=== PATIENT | male | born 1975 | race Caucasian/White ===

== ENCOUNTER 2022-09-11 08:31 | Outpatient (REF) | payer BC, SELFPAY ==
--- NOTE | 2022-09-11 | ECG_ITS ---
Test Reason : ESSENT HTN Blood Pressure : / mmHG Vent. Rate : 092 BPM Atrial Rate : 092 BPM P-R Int : 134 ms QRS Dur : 094 ms QT Int : 350 ms P-R-T Axes : 024 037 032 degrees QTc Int : 432 ms Normal sinus rhythm Normal ECG No previous ECGs available Referred By: Atul Rubio Electronically Signed By:BRO DIAZ MD
[2022-09-11 08:47] LABS: MANUAL DIFF FLAG NO
[2022-09-11 08:58] LABS: Basophils Absolute Auto 0.1 X10*3/uL (0.0-0.2); Basophils Percent Auto 0.9 % (0-2); Eosinophils Absolute Auto 0.2 X10*3/uL (0.0-0.4); Hematocrit 42.5 % (42.0-52.0); Hemoglobin 13.9 g/dl (14.0-18.0); Imm Gran Abs Auto 0.01 X10*3/uL (0.00-0.03); Imm Gran Pct Auto 0.2 % (0.0-0.4); Lymphocytes Absolute Auto 2.4 X10*3/uL (1.2-4.9); Lymphocytes Percent Auto 42.5 % (20-40); Mean Corpuscular HGB Conc 32.7 g/dl (31.0-36.0); Mean Corpuscular Hemoglobin 30.5 pg (27.0-33.0); Mean Corpuscular Volume 93.2 fL (80.0-98.0); Mean Platelet Volume 9.8 fL (9.4-12.4); Monocytes Absolute Auto 0.6 X10*3/uL (0.1-1.2); Monocytes Percent Auto 10.4 % (2-11); Neutrophils Absolute Auto 2.5 x10*3/uL (2.0-8.3); Platelet Count 273 X10*3/uL (160-400); Red Blood Count 4.56 X10*6/uL (4.60-5.80); Red Cell Distribution Width 12.7 % (11.0-16.0); White Blood Count 5.7 X10*3/uL (4.8-10.8)
[2022-09-11 09:39] LABS: Albumin Level 4.2 g/dL (3.5-5.0); Anion Gap 13 (12-20); Bilirubin Direct 0.2 mg/dL (0.0-0.5); Bilirubin Total 0.7 mg/dL (0.0-1.0); Blood Urea Nitrogen 13 mg/dL (9-16); Calcium 9.1 mg/dL (8.4-10.2); Carbon Dioxide 25 mmol/L (22-29); Chloride 106 mmol/L (96-108); Estimated Glomerular Filt Rate > 60; Glucose Fasting 98 mg/dL (60-99); Potassium 4.9 mmol/L (3.3-5.1); Sodium 139 mmol/L (135-145); Total Protein 7.1 g/dL (6.5-8.0)
[2022-09-11 09:54] LABS: Alanine Aminotransferase 25 U/L (0-40); Alkaline Phosphatase 75 U/L (39-117); Aspartate Amino Transferase 26 U/L (5-37)
== END 2022-09-11 08:32 | disposition home or self-care (01) ==
LOC: HO.LAB 08:31
PROVIDERS: Visit Provider Internal Medicine
DX: Z00.00 Encounter for general adult medical examination without abnormal findings (principal); F90.0 Attention-deficit hyperactivity disorder, predominantly inattentive type; I10 Essential (primary) hypertension
CPT/HCPCS: 36415; 80053; 80076; 82248; 85025; 93005

== ENCOUNTER 2024-03-11 09:34 | Outpatient (REF) | payer BC, SELFPAY ==
[2024-03-11 09:58] LABS: MANUAL DIFF FLAG NO
[2024-03-11 10:51] LABS: Basophils Absolute Auto 0.1 X10*3/uL (0.0-0.2); Basophils Percent Auto 1.2 % (0-2); Eosinophils Absolute Auto 0.2 X10*3/uL (0.0-0.4); Eosinophils Percent Auto 4.6 % (0-4); Hemoglobin 14.1 g/dl (14.0-18.0); Imm Gran Abs Auto 0.02 X10*3/uL (0.00-0.03); Imm Gran Pct Auto 0.4 % (0.0-0.4); Lymphocytes Absolute Auto 1.9 X10*3/uL (1.2-4.9); Lymphocytes Percent Auto 38.8 % (20-40); Mean Corpuscular HGB Conc 33.6 g/dl (31.0-36.0); Mean Corpuscular Hemoglobin 31.1 pg (27.0-33.0); Mean Corpuscular Volume 92.5 fL (80.0-98.0); Mean Platelet Volume 9.9 fL (9.4-12.4); Monocytes Absolute Auto 0.5 X10*3/uL (0.1-1.2); Monocytes Percent Auto 9.2 % (2-11); Neutrophils Absolute Auto 2.3 x10*3/uL (2.0-8.3); Neutrophils Percent Auto 45.8 % (45-73); Platelet Count 287 X10*3/uL (160-400); Red Blood Count 4.54 X10*6/uL (4.60-5.80); Red Cell Distribution Width 13.2 % (11.0-16.0)
[2024-03-11 11:50] LABS: Alanine Aminotransferase 19 U/L (0-40); Albumin Level 4.1 g/dL (3.5-5.0); Alkaline Phosphatase 63 U/L (39-117); Anion Gap 13 (12-20); Aspartate Amino Transferase 20 U/L (5-37); Bilirubin Total 0.3 mg/dL (0.0-1.0); Blood Urea Nitrogen 18 mg/dL (9-16); Calcium 9.2 mg/dL (8.4-10.2); Carbon Dioxide 26 mmol/L (22-29); Chloride 107 mmol/L (96-108); Cholesterol 208 mg/dL (<200); Estimated Glomerular Filt Rate > 60; Glucose Fasting 94 mg/dL (60-99); HDL Cholesterol 63 mg/dL (>40); LDL Cholesterol Calculated 128 mg/dL (<100); Potassium 4.8 mmol/L (3.3-5.1); Sodium 141 mmol/L (135-145); Total Protein 7.3 g/dL (6.5-8.0); Triglycerides 88 mg/dL (<150)
[2024-03-11 12:05] LABS: Thyroid Stimulating Hormone 2.22 uIU/mL (0.32-4.0)
[2024-03-11 12:10] LABS: PSA,Total (Free>4and<10) 1.42 ng/mL (0.00-4.00)
== END 2024-03-11 09:35 | disposition home or self-care (01) ==
LOC: HO.LAB 09:34
PROVIDERS: PCP Internal Medicine; Visit Provider Internal Medicine
DX: Z00.00 Encounter for general adult medical examination without abnormal findings (principal); Z12.5 Encounter for screening for malignant neoplasm of prostate; I10 Essential (primary) hypertension; F90.0 Attention-deficit hyperactivity disorder, predominantly inattentive type; N20.0 Calculus of kidney
CPT/HCPCS: 36415; 80053; 80061; 84153; 84443; 85025

== ENCOUNTER 2024-05-14 08:26 | Day surgery (SDC) | payer BC, SELFPAY ==
--- NOTE | 2024-05-13 10:50 | HO.ANESPROP2 ---
Documented by User: Aranza Oviedo NP 05/13/24 10:51 HPI - Anesthesia Eval Consult details Narrative: 49yo M for Colonoscopy, Upper Endoscopy with Balloon Dilitation [facility] Past Medical History Medical History Kidney stones Hernia Raynaud disease Hypertension Surgical History Surgical History Hx of hernia repair Social History Social History Patient Tobacco Use Status: Never used Tobacco Use of substances other than those prescribed or required for medical reasons: No Are you DNR?: No Advance Directives: No Advance Directives Information Provided: Yes Meds Allergies Allergy/AdvReac Type Severity Reaction Status Date / Time No Known Allergies Allergy Unverified 05/11/24 16:41 Home Medications ?Medication ?Instructions ?Recorded ?Confirmed ?Last Taken ?Type atovaquone 250 mg-proguanil 100 mg 1 tab PO DAILY 05/13/24 05/13/24 Unknown History tablet cholecalciferol (vitamin D3) 25 mcg PO DAILY 05/13/24 05/13/24 Unknown History dextroamphetamine-amphetamine ER 1 cap PO QAM 05/13/24 05/13/24 Unknown History 25 mg 24hr capsule,extend release lisinopril 20 mg tablet 20 mg PO DAILY 05/13/24 05/13/24 Unknown History multivitamin 1 tab PO DAILY 05/13/24 05/13/24 Unknown History nifedipine 30 mg tablet,extended 30 mg PO DAILY 05/13/24 05/14/24 05/14/24 History release Assessment and Plan Assessment Anesthesia Assessment: Chart Reviewed Documented by User: Purnima Blanca MD 05/14/24 09:52 [facility] Past Medical History Medical History Kidney stones Hernia Raynaud disease Hypertension Family History Family history of problems with anesthesia: No Surgical History Surgical History Hx of hernia repair History of Problems with Anesthesia: No Social History Social History Patient Tobacco Use Status: Never used Tobacco Use of substances other than those prescribed or required for medical reasons: No Are you DNR?: No Advance Directives: No Advance Directives Information Provided: Yes Meds Allergies Allergy/AdvReac Type Severity Reaction Status Date / Time No Known Allergies Allergy Unverified 05/11/24 16:41 Home Medications ?Medication ?Instructions ?Recorded ?Confirmed ?Last Taken ?Type atovaquone 250 mg-proguanil 100 mg 1 tab PO DAILY 05/13/24 05/13/24 Unknown History tablet cholecalciferol (vitamin D3) 25 mcg PO DAILY 05/13/24 05/13/24 Unknown History dextroamphetamine-amphetamine ER 1 cap PO QAM 05/13/24 05/13/24 Unknown History 25 mg 24hr capsule,extend release lisinopril 20 mg tablet 20 mg PO DAILY 05/13/24 05/13/24 Unknown History multivitamin 1 tab PO DAILY 05/13/24 05/13/24 Unknown History nifedipine 30 mg tablet,extended 30 mg PO DAILY 05/13/24 05/14/24 05/14/24 History release Exam Airway Mallampati Class: III (mild receeding chin) TM Dist: >3cm Neck ROM: Full Heart: rrr Lungs: cta Assessment and Plan Assessment Anesthesia Assessment: Anesthesia Plan Discussed Final Anesthetic Review Family History of Problems with Anesthesia: No History of Problems with Anesthesia: No ASA Class: III Final Preanesthetic Review: No Changes in Pt Med Stat, Meds/Allgs Chart Reviewed, Consent Obtained/Reviewed and Anes Risks/Benef Reviewed Patient Risk: Intermediate Procedure Risk: Low Anesthetic Plan Anesthetic Plan: MAC: Disposition: Standard PACU
[2024-05-14 08:30] VITALS: BMI 28.2
[2024-05-14 08:49] VITALS: BP 125/84; PULSE 83; RESP 16; TEMP 36.2; O2SAT 99
[2024-05-14] MEDS: Lactated Ringers 1,000 ML 100 ML IVCONT (08:50)
[2024-05-14 11:07] VITALS: BP 108/71; PULSE 87; RESP 16; TEMP 36.2; O2SAT 97
--- NOTE | 2024-05-14 11:13 | P.BOP_ITS ---
Brief Operative Note Date of Service: 05/14/24 Pre-op diagnosis: Dysphagia, Screening Post-op diagnosis: other (Colon polyps, Hiatal hernia, GERD) Procedure: EGD with Balloon dilation of EG Junction with 18 to 19 to 20mm balloon, Colonoscopy to the cecum and TI with hot snare polypectomy x 4 Surgeon: Atul Minaya MD Anesthesia: MAC Was an Social Problems Specialist used for this Procedure?: No Estimated blood loss (mL): 2.0 Pathology: other (A. Polyp at 60cm B. Transverse colon polyp C. Rectal polyp D. EG Junction at 40cm) Condition: stable Disposition: PACU
[2024-05-14 11:22] VITALS: BP 125/85; PULSE 80; RESP 16; TEMP 36.1; O2SAT 97
--- NOTE | 2024-05-14 11:51 | OP_ITS ---
DATE OF SERVICE: 05/14/2024 SURGEON: Atul Minaya MD INDICATIONS: The patient presents for evaluation of intermittent dysphagia and colorectal cancer screening. Full consent has been obtained from him for this, including risks of bleeding and perforation. PREOPERATIVE DIAGNOSIS: POSTOPERATIVE DIAGNOSIS: PROCEDURE PERFORMED: Colonoscopy to the cecum and terminal ileum with hot snare polypectomy x4, and esophagogastroduodenoscopy with biopsies and balloon dilation of gastroesophageal junction. ESTIMATED BLOOD LOSS: COMPLICATIONS: ANESTHESIA: Monitored anesthesia care. ASSISTANTS: SPECIMENS: PREOPERATIVE DIAGNOSES: Dysphagia and colorectal cancer screening. POSTOPERATIVE DIAGNOSES: Dysphagia, colorectal cancer screening, colon polyps, internal hemorrhoids, small hiatal hernia, and gastroesophageal reflux. DESCRIPTION OF PROCEDURE: The patient was placed in the left lateral decubitus position. The digital rectal exam revealed no abnormalities. The Olympus video pediatric colonoscope was then entered into the rectum and advanced easily to the cecum. Once in the cecum, I did identify normal-appearing cecal pouch with appendiceal orifice and a normal-appearing ileocecal valve. There was transillumination of light deep in the right lower quadrant. The terminal ileum was cannulated and appeared normal. The scope was withdrawn back in the colon. The entire cecum and ileocecal valve appeared normal. The scope was then slowly withdrawn assessing all mucosal surfaces carefully. Preparation was excellent. In the more proximal transverse colon, was a flat, approximately 6 to 8 mm grossly adenomatous polyp, which was removed by hot snare polypectomy, but not recovered. The polypectomy site was cauterized with the tip of the snare due to some oozing. However, post polypectomy, there did not appear to be any residual polyp nor any further bleeding. In the more distal transverse colon, was a larger approximately 1.5 cm polyp on a stalk, which was removed by hot snare polypectomy and then recovered by a retrieval net and taking out of the patient. The scope was then readvanced back to the polypectomy site, which appeared clean, without any sign of residual polyp nor bleeding. At 60 cm, was an approximately 10 mm polyp, which was removed by hot snare polypectomy and recovered by suction. The polypectomy site appeared clean, without any sign of residual polyp nor bleeding. In the rectum, was an approximately 6 mm polyp, which was removed by hot snare polypectomy and recovered by suction. The polypectomy site appeared clean, without any sign of residual polyp nor bleeding. I did not visualize any other polyps, colitis, nor angiodysplasias. In the rectum, scope was retroflexed, visualizing small internal hemorrhoids, but no other pathology. The scope was straightened and withdrawn from the patient. He was then turned around for his upper endoscopy. The Olympus video gastroscope was passed in the posterior oropharynx and upper esophagus under direct vision. The scope was passed slowly into the distal esophagus. The gastroesophageal junction appeared at 40 cm. With insufflation of air, there did not appear to be any definitive esophageal ring or stricture. There was some slight irregularity consistent with reflux, but no esophagitis nor any definitive Garrett mucosa. The scope easily entered the stomach. There was a small hiatal hernia. The scope was advanced to pylorus and the duodenum was cannulated to the descending portion. The duodenum including the bulb appeared normal without mass or ulceration. The scope was withdrawn back to the stomach. The gastric antrum and body appeared normal with good peristalsis. The scope was retroflexed, visualizing the proximal stomach carefully, which appeared normal, without any sign of mass or ulceration. Scope was straightened and withdrawn back to the esophagus. I did use a [employer] incremental balloon to dilate the gastroesophageal junction from 18 mm to 19 mm to 20 mm at the recommended pressure for between 30 and 60 seconds each. Post dilation, there was a small amount of heme noted. I did obtain 2 biopsies at the EG junction as well at 40 cm. Proximal to this, the esophageal mucosa appeared normal. There was no evidence of any proximal esophageal rings nor other abnormality. The scope was withdrawn from the patient. He tolerated both procedures well and was returned to the recovery area in stable condition. IMPRESSION: 1. Colon polyps. 2. Internal hemorrhoids. 3. Small hiatal hernia, gastroesophageal reflux. PLAN: The results of the pathology will be checked. He was advised not to use any aspirin and NSAIDs for 1 week. He will be given a prescription to use omeprazole 20 mg daily for 1 or 2 months and then he can use it p.r.n. thereafter. We shall see if his swallowing improves with today's procedure and the use of omeprazole. I would recommend a repeat colonoscopy in 3 years for further screening given his relatively young age and today's findings. If things are stable, he will see me on a p.r.n. basis. He was advised to call if swallowing remains a problem or if he has any other issues or questions. This has been discussed with his . MD CONSUELO Ziegler/SYLVESTER / [phone]
== END 2024-05-14 12:11 | disposition home or self-care (01) ==
PROVIDERS: PCP Internal Medicine; Visit Provider Internal Medicine
PROC: 0DJD8ZZ Inspection of Lower Intestinal Tract, Via Natural or Artificial Opening Endoscopic (ICD-10-PCS; CPT 45378; principal; 2024-05-14 09:30)
PROC: (CPT 45385; 2024-05-14 09:30)
DX: Z12.11 Encounter for screening for malignant neoplasm of colon (principal); D12.3 Benign neoplasm of transverse colon; D12.4 Benign neoplasm of descending colon; D12.8 Benign neoplasm of rectum; K64.8 Other hemorrhoids; R13.10 Dysphagia, unspecified; I10 Essential (primary) hypertension; I73.00 Raynaud's syndrome without gangrene; Z79.899 Other long term (current) drug therapy; Z98.890 Other specified postprocedural states
CPT/HCPCS: 45385; 43249; 43239; 88305; 88313; C1726; J1596; J2704

== ENCOUNTER 2024-11-05 15:33 | Outpatient (AMB) | payer BC, SELFPAY ==
--- NOTE | 2024-11-05 15:34 | MHC.PC.OV ---
Vital Signs 11/05/24 15:47 Height 6 ft 0.5 in BP 130/80 Pulse 82 Pulse Source Pulse Oximeter Temp 97.2 F Pulse Oximetry (%) 99 Intake Visit Reasons: left knee pain Intake Note: here for left knee pain going on since new years and has become more noticeable not swollen pain in the front to inner knee not comfortable to put weight on it. Allergies No Known Allergies Allergy (Verified 11/05/24 15:42) PFSH Medical History Kidney stones Hernia Raynaud disease Hypertension Surgical History Hx of hernia repair Social History Patient Tobacco Use Status: Never used Tobacco Physical exam (Primary Care) Vital Signs: Last Vital Signs Temp 97.2 F 11/05/24 15:47 Pulse 82 11/05/24 15:47 BP 130/80 11/05/24 15:47 Pulse Ox 99 11/05/24 15:47 Tobacco/Smoking Status: Tobacco use Status Patient Tobacco Use Status Never used Tobacco 11/05/24 15:35 Coding Level of Care Code New Pt Level 3 (17181) Complex EM visit Add On G2211 Diagnoses Sprain of knee S83.90XA Assessment & Plan Assessment & Plan (1) Sprain of knee: Code(s): S83.90XA - Sprain of unspecified site of unspecified knee, initial encounter Plan: History of Present Illness The patient is a 49-year-old male presenting with knee discomfort and feelings of instability. He reports that since the beginning of the year, he has experienced discomfort in the knee without any remembered specific inciting event. The discomfort started after moving furniture up and down stairs but was not associated with any particular injury at that time. The patient describes instability while standing on the left leg, especially noticeable when putting on socks in the morning. The discomfort has progressively become more uncomfortable, impacting daily activities such as walking, and occasionally causing significant discomfort. The patient has adjusted his treadmill exercise routine, reducing speed due to increased discomfort and occasionally needing to cease activity. No previous medical history or treatment for this issue was mentioned. 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 - Exercise: Walks on a treadmill but currently experiencing discomfort during this activity. Review of Systems - Musculoskeletal: Reports instability in the left knee. Physical Exam General: Appearance normal, both eyes and all related structures Nutritional Appearance: Well nourished Orientation/consciousness: Patient oriented x3 Limitations: Soreness on the knee, avoid treadmill for about a week Head: Normal to inspection Neck: Normal visual inspection Chest: Normal palpation of entire chest wall Respiratory: Normal respiratory effort Neurology: Patient oriented x3 Results Plan - Knee brace: Use a structured knee sleeve to support the knee. - Medication: Prescribe an anti-inflammatory medication to be taken with food once daily. - Activity modification: Advise against treadmill use for one week and recommend resting the knee as much as possible. Patient was informed and verbally consented to the use of an ambient scribe for clinic note documentation during this visit. Discussion Notes I discussed with the patient that he has a sprained knee, which is neither broken nor ruptured. I explained that the knee joint has a full range of motion with no indication of a tear, suggesting only ligamentous strain or sprain. The importance of wearing a structured knee brace for support and reducing activity levels to promote healing was emphasized. The use of a prescribed anti-inflammatory medication was discussed, including taking it with food once daily. I advised the patient about the expected recovery time of one to two weeks, emphasizing that the more rest the knee receives, the faster the recovery. I also explained that no further imaging was required at this time given the normal physical exam findings. Finally, I coordinated with a nearby clinic to supply the patient with an appropriate knee brace. Patient Instructions - Rest the knee as much as you can to aid in recovery. - Avoid using the treadmill or engaging in any strenuous activities for about a week. - Use the knee brace as instructed to support the knee and alleviate discomfort. - Take the prescribed anti-inflammatory medication with food once daily. - Use an assistive device if necessary during air travel or walking to reduce strain. - Return for follow-up if symptoms worsen or do not improve within two weeks. Medications: New meloxicam 15 mg PO DAILY 14 tabs 0RF
[2024-11-05 15:47] VITALS: BP 130/80; PULSE 82; TEMP 36.2; O2SAT 99
== END 2024-11-05 16:23 | disposition home or self-care (01) ==
LOC: HO.HMCSH 15:33
PROVIDERS: PCP Internal Medicine; Visit Provider Internal Medicine
DX: S83.90XA Sprain of unspecified site of unspecified knee, initial encounter (principal)

== ENCOUNTER → 2024-11-05 15:33 | Outpatient (BNVA) | payer BC, SELFPAY | PROVIDERS: PCP Internal Medicine; Visit Provider Internal Medicine ==

== ENCOUNTER 2025-03-18 12:57 | Outpatient (AMB) | payer BC, SELFPAY ==
[2025-03-18 13:06] VITALS: BP 130/82; PULSE 100; TEMP 36.6; O2SAT 98; BMI 30.8
--- NOTE | 2025-03-18 13:06 | MHC.PC.OV ---
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 Medical Device Required: No Accompanied by: Self / Same As Patient Allergies No Known Allergies Allergy (Verified 03/18/25 13:47) Medication List - Last Reconciled 03/18/25 by Ariela Womack PA-C [cholecalciferol (vitamin D3) 25 mcg PO DAILY] dextroamphetamine-amphetamine 30 mg ER 1 cap PO DAILY lisinopril 20 mg PO DAILY meloxicam 15 mg PO DAILY [multivitamin 1 tab PO DAILY] Tobacco use date assessed: 03/18/25 Dental Screening Dental Screen Date: 03/18/25 Did you have a dental visit in the last 12 months?: Yes Did you have a dental problem in the last 6 months where you did not have access to dental care?: No Was dental information given to patient?: Patient has dentist HPI 6 month follow up HPI Details The patient is a 49-year-old male presenting for a follow-up visit and establishment of new primary care. He has a history of ADHD, nephrolithiasis, essential hypertension, Raynaud's phenomenon, and erectile dysfunction. He was on nifedipine 30 mg for Raynaud's phenomenon but has discontinued it due to side effects of leg swelling and erectile dysfunction. His blood pressure remains well-controlled at 130/82 without the medication. He has hyperlipidemia, with total cholesterol at 208 mg/dL and LDL at 128 mg/dL; his HDL is 63 mg/dL. The patient is concerned about his weight, currently at 230 lbs with a BMI of 30, and intends to reduce it to 200 lbs through regular exercise. He walks on a treadmill for 40 minutes daily. The patient denies any significant chest pain or shortness of breath and reports occasional mild discomfort, likely due to acid reflux. He experienced ear issues following a cold, which he treated with Flonase. Social History - Employment: Executive management for an [employer] - Travel: Frequently travels for business - Exercise: Walks on treadmill 40 minutes daily - Weight Management: Aims to reduce weight from 230 lbs to 200 lbs - Alcohol/Smoking: Denies smoking [facility] Medical History (Updated 03/18/25 @ 13:52 by Ariela Womack PA-C) Obesity with body mass index (BMI) of 30.0 to 39.9 Hypercholesteremia Hyperlipidemia Erectile dysfunction ADHD Establishing care with new doctor, encounter for Kidney stones Hernia Raynaud disease Hypertension Surgical History History of endoscopy (~04/24/24) History of colonoscopy (~05/14/24) Hx of hernia repair Family History Father No problems noted. Mother No problems noted. Social History Housing: House Alcohol intake: current Alcohol intake frequency: 0-2 drinks per day Patient Tobacco Use Status: Never used Tobacco service: No Current occupational status: employed Cognitive needs: No Hearing needs: No Vision needs: Yes (rx glasses) Questionnaire PHQ-9 Over the last 2 weeks, how often have you been bothered by any of the following problems? 1. Little interest or pleasure in doing things: not at all 2. Feeling down, depressed, or hopeless: not at all 3. Trouble falling or staying asleep, or sleeping too much: not at all 4. Feeling tired or having little energy: not at all 5. Poor appetite or overeating: not at all 6. Feeling bad about yourself - or that you are a failure or have let yourself or your family down: not at all 7. Trouble concentrating on things, such as reading the newspaper or watching television: not at all 8. Moving or speaking so slowly that other people could have noticed. Or the opposite - being so fidgety or restless that you have been moving around a lot more than usual: not at all 9. Thoughts that you would be better off or of hurting yourself in some way: not at all Total score: 0 Depression Screening Interpretation: Negative Depression Screening Done: Yes 42264 - PHQ-9 Billing: Yes Source: Developed by Drs. Atul Harley, Minnie Smith, Cooper Aburto and colleagues, with an educational stephanie from [employer]. Thrive Questionnaire Date Thrive assessed: 03/18/25 I am a: Patient What is your living situation today?: I have a steady place to live Within the past 12 months, did the food you bought not last and you didn't have the money to get more?: Never true Within the past 12 months, did you worry whether your food would run out before you got money to buy more?: Never true Do you have trouble paying for medicines?: No Do you have trouble getting transportation to medical appointments?: No Do you have trouble paying your heating and electricity bill?: No Do you have trouble taking care of your child, family member or friend?: No Do you have trouble with day-to-day activities such as bathing, preparing meals, shopping, managing finances, etc.?: No Are you currently unemployed and looking for a job?: No Are you interested in more education?: No Please select the resources that you would like help with: None THRIVE Score: 0 AUDIT C Alcohol Use Questionnaire (AUDIT-C) 1. How often do you have a drink containing alcohol?: 4 or more times a week 2. How many drinks containing alcohol do you have on a typical day when you are drinking?: 1 or 2 3. How often do you have six or more drinks on one occasion?: Never Total Score: 4 Score Reviewed/Action Taken: No TREVOR-7 AMB Questionnaire TREVOR-7 Date TREVOR - 7 assessed: 03/18/25 Feeling nervous, anxious, or on edge: 0 = Not at all Not being able to stop or control worryin = Not at all Worrying too much about different things: 0 = Not at all Trouble relaxin = Not at all Being so restless that it is hard to sit still: 0 = Not at all Becoming easily annoyed or irritable: 0 = Not at all Feeling afraid as if something awful might happen: 0 = Not at all Total TREVOR-7 score (0-4 normal; 5-9 mild; 10-14 moderate; 15-21 severe): 0 Source: Developed by Drs. Atul Harley, Minnie Smith, Cooper Aburto and colleagues, with an educational stephanie from [employer]. TREVOR-7 Assessment Billing TREVOR-7 Assessment Tool: TREVOR-7 Assessment 87309 Review of Systems Const Details: - Cardiovascular: Denies chest pain, shortness of breath - Respiratory: Denies dyspnea - Gastrointestinal: Reports occasional mild discomfort, suspected acid reflux - Genitourinary: Reports erectile dysfunction - Dermatologic: Reports Raynaud's phenomenon affecting hands - Neurological: Denies headaches, dizziness - Ears/Nose/Throat: Reports recent cold with ear problems, uses Flonase - Psychiatric: History of ADHD Physical exam (Primary Care) Vital Signs: Last Vital Signs Temp 97.8 F 03/18/25 13:06 Pulse 100 03/18/25 13:06 BP 130/82 03/18/25 13:06 Pulse Ox 98 03/18/25 13:06 Oxygen Delivery Method Room Air 03/18/25 13:06 Care Plan Goal for BP management: <140/90 at Goal BMI result Body Mass Index 30.8 BMI Assessment/Plan discussion: High BMI High, discussed plan: lifestyle, weight reduction, dietary, physical activity and alcohol moderation Tobacco/Smoking Status: Tobacco use Status Tobacco use date assessed 03/18/25 03/18/25 13:09 Patient Tobacco Use Status Never used Tobacco 03/18/25 13:28 PHQ-9: PHQ-9 Score PHQ-9: Total score 0 03/18/25 13:28 Depression Screening Interpretation: Negative Thrive Assessment: Date of Thrive Assessment Date Thrive assessed 03/18/25 03/18/25 13:09 Const Other: Appearance: Alert. Oriented X3. No acute distress. Head: Normal external exam. Normocephalic. Atraumatic. Eyes: Pupils are equal, round, and reactive to light. Extraocular movements intact. Conjunctiva and sclera normal. Eyelids normal. Ears: External auditory canal normal. Tympanic membranes normal. Barely any wax present. Throat: Pharynx normal. Uvula midline. Moist mucous membranes. Neck: Normal inspection. Neck supple. Full range of motion. Cardiovascular: Normal heart rate and rhythm. Heart sound normal. No murmurs noted. Pulses normal throughout. Blood pressure is 130/82. Respiratory: No respiratory distress. Painless inspiration. Breath sounds normal. No wheezes/rales/rhonchi noted. Chest nontender. No accessory muscle usage noted or decreased air movement noted. Lungs sound good. Abdomen: Soft and nontender. Back: No costovertebral angle tenderness. Full range of motion noted. Skin: Skin warm and dry. Normal skin color. Normal skin turgor. No rashes/lesions/lacerations noted. Extremities: No lower extremity edema. Extremities exhibit normal range of motion. Extremities nontender. History of leg swelling with medication, resolved now. Neuro: Oriented X 3. No motor deficit. No sensory deficit. Reflexes normal. Results Reviewed Results Reviewed: - Labs: - Total cholesterol: 208 mg/dL - LDL cholesterol: 128 mg/dL - HDL cholesterol: 63 mg/dL - Fasting glucose: 94 mg/dL - Procedures: - Recent colonoscopy with findings of polyps Coding Level of Care Code Est Pt Level 4 (91505) Complex EM visit Add On G2211 Diagnoses Establishing care with new doctor, encounter for Z76.89 Hypertension I10 ADHD F90.9 Raynaud disease I73.00 Erectile dysfunction N52.9 Hyperlipidemia E78.5 Hypercholesteremia E78.00 Obesity with body mass index (BMI) of 30.0 to 39.9 E66.9 Additional Codes PHQ-9 - 06589 - PHQ-9 Billing: Yes ([id number]) TREVOR-7 Assessment Billing - TREVOR-7 Assessment Tool: TREVOR-7 Assessment 99606 ([id number]) Assessment & Plan Assessment & Plan (1) Establishing care with new doctor, encounter for: Code(s): Z76.89 - Persons encountering health services in other specified circumstances Category: Medical (2) Hypertension: Code(s): I10 - Essential (primary) hypertension Category: Medical Plan: Blood pressure is controlled at 130/82 mmHg after nifedipine was stopped. The patient will monitor blood pressure at home and will consider increasing lisinopril if needed. Is chronic and stable will continue to monitor. (3) ADHD: Code(s): F90.9 - Attention-deficit hyperactivity disorder, unspecified type Category: Medical Plan: Continue Adderall as prescribed by psychiatrist. Condition is chronic and stable continue to monitor. (4) Raynaud disease: Code(s): I73.00 - Raynaud's syndrome without gangrene Category: Medical Plan: Nifedipine was discontinued due to side effects. Monitoring of symptoms will continue, and alternative treatments may be explored if symptoms recur. Condition is chronic and stable will continue to monitor. (5) Erectile dysfunction: Code(s): N52.9 - Male erectile dysfunction, unspecified Category: Medical Plan: Symptoms resolved after stopping nifedipine. No further intervention is planned unless symptoms return. (6) Hyperlipidemia: Code(s): E78.5 - Hyperlipidemia, unspecified Category: Medical Plan: Slightly elevated cholesterol levels are managed with lifestyle changes. No immediate pharmacological intervention needed. Condition is chronic and stable will continue to monitor. (7) Hypercholesteremia: Code(s): E78.00 - Pure hypercholesterolemia, unspecified Category: Medical Plan: Slightly elevated cholesterol levels are managed with lifestyle changes. No immediate pharmacological intervention needed. Condition is chronic and stable will continue to monitor. (8) Obesity with body mass index (BMI) of 30.0 to 39.9: Code(s): E66.9 - Obesity, unspecified Category: Medical Plan: Encouraged ongoing exercise and dietary modifications to achieve weight loss goals. Regular weight monitoring is advised. Condition is chronic and stable will continue to monitor. Plan Plan Patient was informed and verbally consented to the use of an ambient scribe for clinic note documentation during this visit. 1. Essential Hypertension Blood pressure is controlled at 130/82 mmHg after nifedipine was stopped. The patient will monitor blood pressure at home and will consider increasing lisinopril if needed. 2. Raynaud's Phenomenon Nifedipine was discontinued due to side effects. Monitoring of symptoms will continue, and alternative treatments may be explored if symptoms recur. 3. Erectile Dysfunction Symptoms resolved after stopping nifedipine. No further intervention is planned unless symptoms return. 4. Hyperlipidemia Slightly elevated cholesterol levels are managed with lifestyle changes. No immediate pharmacological intervention needed. 5. Weight Management Encouraged ongoing exercise and dietary modifications to achieve weight loss goals. Regular weight monitoring is advised. During the visit, we discussed the patient's current health status and management plans. The patient is advised to continue monitoring his blood pressure regularly, especially after discontinuing nifedipine due to side effects. We discussed the potential need to adjust lisinopril dosage if blood pressure increases. For Raynaud's phenomenon, alternative options will be considered if symptoms reoccur. The patient is encouraged to maintain his exercise routine and dietary changes to address weight management and hyperlipidemia. We reviewed the importance of regular follow-up and laboratory evaluations, including lipid profiles, to monitor his progress. Orders: Orders Complete Blood Count Auto Diff Today Z00.00 - Encounter for general adult medical examination without abnormal findings Comprehensive [place]. Panel Fast Today Z00.00 - Encounter for general adult medical examination without abnormal findings Lipid Panel Today Z00.00 - Encounter for general adult medical examination without abnormal findings Liver Panel Today Z00.00 - Encounter for general adult medical examination without abnormal findings Hemoglobin A1c Today Z00. - Encounter for general adult medical examination without abnormal findings Vitamin D 25-OH Total Today Z00.00 - Encounter for general adult medical examination without abnormal findings C Reactive Protein Today Z00.00 - Encounter for general adult medical examination without abnormal findings PSA,Total (Free>4and<10) Today Z00.00 - Encounter for general adult medical examination without abnormal findings Vitamin B12 and Folate Today Z00.00 - Encounter for general adult medical examination without abnormal findings Magnesium Today Z00.00 - Encounter for general adult medical examination without abnormal findings TSH reflex Free T4 Today Z00.00 - Encounter for general adult medical examination without abnormal findings Patient Instructions: - Monitor blood pressure at home regularly; report any significant changes. - Continue current exercise routine and aim for dietary improvements to support weight loss. - Report any recurrence of Raynaud's symptoms or erectile dysfunction. - Follow up in six months for re-evaluation and blood work. - Go fasting for the blood work as discussed. - Seek medical attention if experiencing persistent chest pain or shortness of breath. - Return for regular follow-up appointments and lab tests as advised.
--- OUTSIDE RECORDS SUMMARY | 2025-03-18 13:38 | XMS_ITS ---
Author Name [facility] Organization Unknown Encounters Encounter Type Encounter Reason Primary Diagnosis Location Date Ambulatory Furuncle of head (any part, except face) [facility] 07/25/2021 Care Team Organization Name Specialty Phone Email Start Date End [facility] 07/26/2021 06/09/2024 [facility] 07/25/2021 07/25/2021
== END 2025-03-18 13:48 | disposition home or self-care (01) ==
LOC: HO.HMCSH 12:57
PROVIDERS: PCP Internal Medicine; Visit Provider Physician Assistant Medical
DX: Z76.89 Persons encountering health services in other specified circumstances (principal); I10 Essential (primary) hypertension; F90.9 Attention-deficit hyperactivity disorder, unspecified type; I73.00 Raynaud's syndrome without gangrene; N52.9 Male erectile dysfunction, unspecified; E78.5 Hyperlipidemia, unspecified; E78.00 Pure hypercholesterolemia, unspecified; E66.9 Obesity, unspecified

== ENCOUNTER → 2025-03-18 12:57 | Outpatient (BNVA) | payer BC, SELFPAY | PROVIDERS: PCP Internal Medicine; Visit Provider Physician Assistant Medical | DX: Z76.89 Persons encountering health services in other specified circumstances (principal); I10 Essential (primary) hypertension; F90.9 Attention-deficit hyperactivity disorder, unspecified type; I73.00 Raynaud's syndrome without gangrene; N52.9 Male erectile dysfunction, unspecified; E78.00 Pure hypercholesterolemia, unspecified; E66.9 Obesity, unspecified; Z68.30 Body mass index [BMI] 30.0-30.9, adult; Z79.899 Other long term (current) drug therapy; Z13.30 Encounter for screening examination for mental health and behavioral disorders, unspecified; Z13.31 Encounter for screening for depression | CPT/HCPCS: 96127 ==

== ENCOUNTER 2025-08-14 08:14 | Outpatient (REF) | payer BC, SELFPAY ==
[2025-08-14 08:30] LABS: MANUAL DIFF FLAG NO
[2025-08-14 09:13] LABS: Hematocrit 44.8 % (42.0-52.0); Hemoglobin 14.8 g/dl (14.0-18.0); Imm Gran Abs Auto 0.01 X10*3/uL (0.00-0.03); Imm Gran Pct Auto 0.2 % (0.0-0.4); Lymphocytes Absolute Auto 2.0 X10*3/uL (1.2-4.9); Mean Corpuscular HGB Conc 33.0 g/dl (31.0-36.0); Mean Corpuscular Hemoglobin 30.5 pg (27.0-33.0); Mean Corpuscular Volume 92.2 fL (80.0-98.0); NRBC Abs Auto 0.000 X10*3/uL (0.0-0.012); NRBC Pct Auto 0.0 /100WBC (0.0-0.2); Platelet Count 290 X10*3/uL (160-400); Red Blood Count 4.86 X10*6/uL (4.60-5.80); White Blood Count 5.3 X10*3/uL (4.8-10.8)
[2025-08-14 09:55] LABS: Alanine Aminotransferase 36 U/L (0-40); Albumin Level 4.6 g/dL (3.5-5.0); Alkaline Phosphatase 91 U/L (39-117); Anion Gap 12 (12-20); Aspartate Amino Transferase 33 U/L (5-37); Blood Urea Nitrogen 21 mg/dL (9-16); Calcium 9.2 mg/dL (8.4-10.2); Carbon Dioxide 27 mmol/L (22-29); Chloride 106 mmol/L (96-108); Cholesterol 235 mg/dL (<200); Estimated Glomerular Filt Rate > 60; HDL Cholesterol 60 mg/dL (>40); Magnesium 2.1 mg/dL (1.6-2.6); Potassium 4.7 mmol/L (3.3-5.1); Sodium 140 mmol/L (135-145); Total Protein 7.6 g/dL (6.5-8.0); Triglycerides 103 mg/dL (<150)
[2025-08-14 10:03] LABS: PSA,Total (Free>4and<10) 1.86 ng/mL (0.00-4.00)
[2025-08-14 10:22] LABS: Folate 14.1 ng/mL (> or = 4.0); Vitamin B12 459 pg/mL (200-900)
== END 2025-08-14 08:15 | disposition home or self-care (01) ==
LOC: HO.LAB 08:14
PROVIDERS: PCP Physician Assistant Medical; Visit Provider Physician Assistant Medical
DX: Z00.00 Encounter for general adult medical examination without abnormal findings (principal); Z12.5 Encounter for screening for malignant neoplasm of prostate; Z13.29 Encounter for screening for other suspected endocrine disorder; Z13.1 Encounter for screening for diabetes mellitus; Z13.6 Encounter for screening for cardiovascular disorders
CPT/HCPCS: 36415; 80053; 80061; 80076; 82248; 82306; 82607; 82746; 83036; 83735; 84153; 84443; 85025; 86140

== ENCOUNTER 2025-09-21 13:00 | Outpatient (AMB) | payer BC, SELFPAY ==
--- NOTE | 2025-09-21 13:02 | A.OFFPC_ITS ---
Vital Signs 09/21/25 13:08 09/21/25 13:51 09/21/25 13:51 Height 6 ft 0.5 in Weight 241 lb BMI 32.2 BP 158/98 H 169/103 H Blood Pressure Location Rt brachial Lt brachial Position Sitting Pulse 79 82 Pulse Source Pulse Oximeter Monitor Temp 97 F Pulse Oximetry (%) 99 Intake Visit Reasons: 6 Month follow up Intake Note: weight has been going up having numbness in fingers and toes gets worse in the winter hillary has had a nagging cough for a week a little sore throat in the beginning. Allergies No Known Allergies Allergy (Verified 09/21/25 13:51) Medication List - Last Reconciled 09/21/25 by Ariela Womack PA-C [cholecalciferol (vitamin D3) 25 mcg PO DAILY] dextroamphetamine-amphetamine 30 mg ER 1 cap PO DAILY ginkgo biloba leaf extract 120 mg PO DAILY lisinopril 20 mg PO BID 90 days meloxicam 15 mg PO DAILY [multivitamin 1 tab PO DAILY] rosuvastatin (Crestor) 10 mg PO BEDTIME Tobacco use date assessed: 03/18/25 Dental Screening Dental Screen Date: 09/21/25 Did you have a dental visit in the last 12 months?: Yes Did you have a dental problem in the last 6 months where you did not have access to dental care?: No Was dental information given to patient?: Patient has dentist HPI HPI Comments History of Present Illness Details History of Present Illness The patient is a 50 year old individual presenting for an annual physical examination and to discuss weight gain. The patient is concerned about a weight gain of approximately 20 pounds over the past six months, which occurred without a significant lifestyle change. Current weight is 241 pounds, which is the heaviest the patient has ever been. The patient was recently started on a statin for hyperlipidemia. Lab work from July 2025 showed a total cholesterol of 235 mg/dL and an LDL of 155 mg/dL. Blood pressure was noted to be high during the visit at 160/100 mmHg. Recent lab work also showed a fasting glucose of 101 mg/dL, though the A1c was within the normal range at 5.5%. Other labs including CBC, metabolic panel, kidney function, liver enzymes, vitamin levels, and thyroid function were all normal. A CT scan in April revealed several incidental findings, including a 4 mm right upper lobe nodule, trace left pleural effusion, fatty liver, calcified gran ulomas in the spleen, and an old left 6th rib fracture of which the patient was unaware. The patient has a history of kidney stones, but a recent follow-up ultrasound was clear. The patient's last colonoscopy was in April 2024, with a three-year follow-up recommended. Social History - Diet and Weight Management: The patien t is concerned about recent weight gain and plans to manage it through diet and discipline, having previously lost 60 pounds in six months by logging food intake and limiting calories to 3232-1490 per day. - The patient declined weight loss injec tions or medications at this time but is open to trying metformin in the future if lifestyle changes are not successful. [facility] Medical History (Updated 09/21/25 @ 13:58 by Ariela Womack PA-C) Healthcare maintenance Annual physical exam Heart murmur Fatty liver Spleen disorder History of rib fracture Right upper lobe pulmonary nodule Obesity with body mass index (BMI) of 30.0 to 39.9 Hypercholesteremia Hyperlipidemia Erectile dysfunction ADHD Establishing care with new doctor, encounter for Kidney stones Hernia Raynaud disease Hypertension Surgical History History of endoscopy (~04/24/24) History of colonoscopy (~05/14/24) Hx of hernia repair Family History Father No problems noted. Mother No problems noted. Social History Housing: House Alcohol intake: current Alcohol intake frequency: 0-2 drinks per day Patient Tobacco Use Status: Never used Tobacco service: No Current occupational status: employed Cognitive needs: No Hearing needs: No Vision needs: Yes (rx glasses) Questionnaire PHQ-9 Over the last 2 weeks, how often have you been bothered by any of the following problems? 1. Little interest or pleasure in doing things: not at all 2. Feeling down, depressed, or hopeless: not at all 3. Trouble falling or staying asleep, or sleeping too much: not at all 4. Feeling tired or having little energy: not at all 5. Poor appetite or overeating: not at all 6. Feeling bad about yourself - or that you are a failure or have let yourself or your family down: not at all 7. Trouble concentrating on things, such as reading the newspaper or watching television: not at all 8. Moving or speaking so slowly that other people could have noticed. Or the opposite - being so fidgety or restless that you have been moving around a lot more than usual: not at all 9. Thoughts that you would be better off or of hurting yourself in some way: not at all Total score: 0 Depression Screening Interpretation: Negative Depression Screening Done: Yes 50879 - PHQ-9 Billing: Yes Source: Developed by Drs. Atul Harley, Minnie Smith, Cooper Aburto and colleagues, with an educational stephanie from [employer]. Thrive Questionnaire Date Thrive assessed: 03/18/25 I am a: Patient What is your living situation today?: I have a steady place to live Within the past 12 months, did the food you bought not last and you didn't have the money to get more?: Never true Within the past 12 months, did you worry whether your food would run out before you got money to buy more?: Never true Do you have trouble paying for medicines?: No Do you have trouble getting transportation to medical appointments?: No Do you have trouble paying your heating and electricity bill?: No Do you have trouble taking care of your child, family member or friend?: No Do you have trouble with day-to-day activities such as bathing, preparing meals, shopping, managing finances, etc.?: No Are you currently unemployed and looking for a job?: No Are you interested in more education?: No Please select the resources that you would like help with: None THRIVE Score: 0 AUDIT C Alcohol Use Questionnaire (AUDIT-C) 1. How often do you have a drink containing alcohol?: 4 or more times a week 2. How many drinks containing alcohol do you have on a typical day when you are drinking?: 1 or 2 3. How often do you have six or more drinks on one occasion?: Never Total Score: 4 Score Reviewed/Action Taken: No TREVOR-7 AMB Questionnaire TREVOR-7 Date TREVOR - 7 assessed: 03/18/25 Feeling nervous, anxious, or on edge: 0 = Not at all Not being able to stop or control worryin = Not at all Worrying too much about different things: 0 = Not at all Trouble relaxin = Not at all Being so restless that it is hard to sit still: 0 = Not at all Becoming easily annoyed or irritable: 0 = Not at all Feeling afraid as if something awful might happen: 0 = Not at all Total TREVOR-7 score (0-4 normal; 5-9 mild; 10-14 moderate; 15-21 severe): 0 Source: Developed by Drs. Atul Harley, Minnie Smith, Cooper Aburto and colleagues, with an educational stephanie from [employer]. TREVOR-7 Assessment Billing TREVOR-7 Assessment Tool: TREVOR-7 Assessment 96058 Review of Systems Narrative Review of Systems - Constitutional: Reports weight gain. - Respiratory: Reports producing mucus in the morning. Denies shortness of breath. - Cardiovascular: Denies chest pain. - Gastrointestinal: Reports normal bowel movements. Denies black or bloody stools and abdominal pain. - Musculoskeletal: Denies recent falls. - ENT: Denies difficulty swallowing. Const All systems reviewed & are unremarkable except as noted in HPI and below Physical exam (Primary Care) Vital Signs: Last Vital Signs Temp 97 F 09/21/25 13:08 Pulse 79 09/21/25 13:08 BP 158/98 H 09/21/25 13:08 Pulse Ox 99 09/21/25 13:08 Care Plan Goal for BP management: <140/90 at Goal BMI result Body Mass Index 32.2 BMI Assessment/Plan discussion: High BMI High, discussed plan: lifestyle, weight reduction, dietary, physical activity, alcohol moderation and other Tobacco/Smoking Status: Tobacco use Status Tobacco use date assessed 03/18/25 09/21/25 13:03 Patient Tobacco Use Status Never used Tobacco 09/21/25 13:03 PHQ-9: PHQ-9 Score PHQ-9: Total score 0 09/21/25 13:17 Depression Screening Interpretation: Negative Thrive Assessment: Date of Thrive Assessment Date Thrive assessed 03/18/25 09/21/25 13:03 Narrative Physical Exam Appearance: Alert. Oriented X3. No acute distress. Head: Normal external exam. Normocephalic. Atraumatic. Eyes: Pupils are equal, round, and reactive to light. Extraocular movements intact. Conjunctiva and sclera normal. Eyelids normal. Ears: External auditory canal normal. Tympanic membranes normal. Throat: Pharynx normal. Uvula midline. Moist mucous membranes. Neck: Normal inspection. Neck supple. Full range of motion. No adenopathy. Thyroid Normal. No meningeal signs. No neck mass noted. Cardiovascular: Normal heart rate and rhythm. Heart sound normal. heart murmur noted. Blood pressure was high at 160/100, rechecked at 169/100. Pulses normal throughout. Respiratory: No respiratory distress. Painless inspiration. Breath sounds normal. No wheezes/rales/rhonchi noted. No accessory muscle usage noted or decreased air movement noted. Abdomen: Soft and nontender. No distention noted. No organomegaly noted. Back: Full range of motion noted. Skin: Skin warm and dry. Normal skin color. Normal skin turgor. No rashes/lesions/lacerations noted. Extremities: No lower extremity edema. Extremities exhibit normal range of motion. Neuro: Oriented X 3. No motor deficit. No sensory deficit. Reflexes normal. Office Procedures Flu Questionnaire Does the patient have a severe egg allergy?: No Does the patient have severe life threatening allergies?: No Does the patient have a fever or illness today?: No Has the patient ever had Guillain-Eek Syndrome?: No Has the patient ever had any past reaction to a flu shot?: No Immunizations Fluarix [id number] (PF) 45 mcg (15 mcg x 3)/0.5 mL IM syringe Performing Provider: Ariela Womack PA-C [facility] Documented (not given) by: Rizwana Aggarwal on 09/21/25 13:15 Reason Not Given: Received Previously Results Reviewed Results Reviewed: Results - Labs (08/14/2025): - CBC: Normal. - CMP: Sodium, potassium, and kidney function were normal. Fasting glucose was 101 mg/dL. Calcium, magnesium, and liver enzymes were normal. - Hemoglobin A1c: 5.5%. - Lipid Panel: Total cholesterol 235 mg/dL, LDL 155 mg/dL, triglycerides normal. - PSA, Vitamin B12, Vitamin D, Folate, and Thyroid were normal. - Imaging and Tests: - CT Scan (April): Showed a 4 mm right upper lobe nodule, trace left pleural effusion, fatty liver, calcified granulomas in the spleen, and an old 6th rib fracture on the left side. - Colonoscopy (05/14/2024): Performed, with a 3-year follow-up recommended. - Kidney Ultrasound (recent): Clear, with no evidence of kidney stones. Coding Level of Care Code Est Pt Level 4 (61577) Est Pt Prev Care 40-64y(12901) Diagnoses Annual physical exam Z00.00 Hypertension I10 Hyperlipidemia E78.5 Obesity with body mass index (BMI) of 30.0 to 39.9 E66.9 Right upper lobe pulmonary nodule R91.1 Heart murmur R01.1 Healthcare maintenance Z00.00 Additional Codes TREVOR-7 Assessment Billing - TREVOR-7 Assessment Tool: TREVOR-7 Assessment 86568 ([id number]) PHQ-9 - 52442 - PHQ-9 Billing: Yes ([id number]) Assessment & Plan Assessment & Plan (1) Annual physical exam: Code(s): Z00.00 - Encounter for general adult medical examination without abnormal findings Category: Medical (2) Hypertension: Code(s): I10 - Essential (primary) hypertension Category: Medical Plan: The patient's blood pressure is uncontrolled, with a reading of 169/100 mmHg in the office. The plan is to increase the blood pressure medication to 40 mg daily, splitting the dose into 20 mg in the morning and 20 mg at night for better control. The patient was counseled on dietary modifications to help lower blood pressure and provided with educational materials. A follow-up visit is scheduled in one month to recheck blood pressure. (3) Hyperlipidemia: Code(s): E78.5 - Hyperlipidemia, unspecified Category: Medical Plan: The patient has elevated cholesterol with a total cholesterol of 235 mg/dL and LDL of 155 mg/dL. Plan is to continue the recently prescribed statin medication and to recheck the lipid panel in six months to evaluate efficacy. The patient was also counseled on dietary changes for cholesterol management. (4) Obesity with body mass index (BMI) of 30.0 to 39.9: Code(s): E66.9 - Obesity, unspecified Category: Medical Plan: The patient expressed concern over a recent weight gain of about 20 pounds. The patient will pursue weight loss through diet and discipline, and declined pharmacotherapy for now. The option of using metformin was discussed as a potential future aid if lifestyle modifications are not successful. The patient received educational materials regarding diet for weight loss. (5) Right upper lobe pulmonary nodule: Comment: Repeat CT Chest April 2026 Code(s): R91.1 - Solitary pulmonary nodule Category: Medical Plan: A 4 mm nodule in the right upper lobe was incidentally found on a CT scan from April. Given that nodules less than 6 mm do not require routine follow-up, but considering its location, an optional CT in 12 months was discussed. A repeat chest CT scan will be ordered for April 2026 to monitor for any changes. (6) Heart murmur: Code(s): R01.1 - Cardiac murmur, unspecified Category: Medical Plan: A heart murmur was auscultated during the physical examination. Due to patient with uncontrolled blood pressure despite being on lisinopril 20 mg taking as prescribed will order echocardiogram for further evaluation management. Will also add another 20 mg to the lisinopril today and patient will return in 1 month for blood pressure check. (7) Healthcare maintenance: Code(s): Z00.00 - Encounter for general adult medical examination without abnormal findings Category: Medical Plan: The patient presented for an annual physical exam. Recent lab work and imaging studies were reviewed. Colon cancer screening is up to date, with the next colonoscopy due in 2026. Preventative counseling was provided regarding diet for blood pressure, cholesterol, and weight management. Plan Plan Patient was informed and verbally consented to the use of an ambient scribe for clinic note documentation during this visit. 1. Hypertension The patient's blood pressure is uncontrolled, with a reading of 169/100 mmHg in the office. The plan is to increase the blood pressure medication to 40 mg daily, splitting the dose into 20 mg in the morning and 20 mg at night for better control. The patient was counseled on dietary modifications to help lower blood pressure and provided with educational materials. A follow-up visit is scheduled in one month to recheck blood pressure. Will also order echocardiogram due to heart murmur and uncontrolled blood pressure. 2. Hyperlipidemia The patient has elevated cholesterol with a total cholesterol of 235 mg/dL and LDL of 155 mg/dL. Plan is to continue the recently prescribed statin medication and to recheck the lipid panel in six months to evaluate efficacy. The patient was also counseled on dietary changes for cholesterol management. 3. Overweight The patient expressed concern over a recent weight gain of about 20 pounds. The patient will pursue weight loss through diet and discipline, and declined pharmacotherapy for now. The option of using metformin was discussed as a potential future aid if lifestyle modifications are not successful. The patient received educational materials regarding diet for weight loss. 4. Right Upper Lobe Lung Nodule A 4 mm nodule in the right upper lobe was incidentally found on a CT scan from April. Given that nodules less than 6 mm do not require routine follow-up, but considering its location, an optional CT in 12 months was discussed. A repeat chest CT scan will be ordered for April 2026 to monitor for any changes. 5. Heart Murmur A heart murmur was auscultated during the physical examination. Due to patient with uncontrolled blood pressure despite being on lisinopril 20 mg taking as prescribed will order echocardiogram for further evaluation management. Will also add another 20 mg to the lisinopril today and patient will return in 1 month for blood pressure check. 6. Health Maintenance The patient presented for an annual physical exam. Recent lab work and imaging studies were reviewed. Colon cancer screening is up to date, with the next colonoscopy due in 2026. Preventative counseling was provided regarding diet for blood pressure, cholesterol, and weight management. Discussion Notes I conducted an annual physical exam for the patient today. We discussed the patient's concerns regarding recent weight gain of about 20 pounds. I reviewed recent lab results, which showed elevated total cholesterol and LDL, and a slightly elevated fasting glucose. We discussed the patient's significantly elevated blood pressure reading of 169/100 mmHg. I recommended increasing the blood pressure medication to 40 mg daily, divided into two doses, and we will follow up in one month to assess the response. We reviewed the findings from a recent CT scan, including a 4 mm lung nodule, fatty liver, and an old rib fracture. I explained that while the nodule is small, a follow-up CT scan in 12 months is a reasonable precaution, and we plan to order it for next April. During the physical exam, I auscultated a heart murmur. Due to the patient having uncontrolled blood pressure, we agreed to proceed with an echocardiogram to get a baseline evaluation. I supported the patient's plan to manage weight through diet and discipline and discussed metformin as a potential future option if needed. I provided educational pamphlets on diet for hypertension and hyperlipidemia. Orders: Orders Influenza [id number] Immunization Today Z23 - Encounter for immunization CA echo transthoracic complete Today E66.9 - Obesity, unspecified, E78.00 - Pure hypercholesterolemia, unspecified, E78.5 - Hyperlipidemia, unspecified, I10 - Essential (primary) hypertension, R01.1 - Cardiac murmur, unspecified Medications: Changed From lisinopril 20 mg PO DAILY 90 tabs 1RF To lisinopril 20 mg PO BID 180 tabs 3RF 90 days Patient Instructions: Patient Instructions - Increase your blood pressure medication to 40 mg per day. Take one 20 mg pill in the morning and one 20 mg pill at night. - Return to the clinic in one month for a blood pressure check. - Continue taking your cholesterol medication (statin) as prescribed. We will repeat your cholesterol blood test in about six months. - We will schedule a repeat CT scan of your chest for next April (2025) to check on the small spot found on your lung. - I am ordering an ultrasound of your heart (echocardiogram) to get a better look at the heart murmur heard today. The hospital will call you to schedule this appointment. - Continue with your plan for weight loss through diet and discipline. You were given informational handouts to help guide your food choices for blood pressure and cholesterol.
[2025-09-21 13:08] VITALS: BP 158/98; PULSE 79; TEMP 36.1; O2SAT 99; BMI 32.2
[2025-09-21 13:51] VITALS: BP 169/103; PULSE 82
--- OUTSIDE RECORDS SUMMARY | 2025-09-21 16:40 | XMS_ITS ---
Author Name [facility] Organization Unknown Results Test Name/Text Value Interpretation Date Range Source Glucose Ur Ql Negative 04/23/2025 - [facility] Sp Gr Ur 1.01 04/23/2025 1.005 - 1.03 [facility] Hgb Ur Ql Negative 04/23/2025 - [facility] Clarity Ur Clear 04/23/2025 - [facility] Leukocyte esterase Ur Ql Strip Negative 04/23/2025 - [facility] Prot Ur Strip-mCnc Negative 04/23/2025 - [facility] Nitrite Ur Ql Negative 04/23/2025 - [facility] Color Ur Yellow 04/23/2025 - [facility] Ketones Ur-mCnc Negative 04/23/2025 - [facility] pH Ur 6.5 pH 04/23/2025 5 - 8 [facility] BUN/Creat SerPl 15.9 04/23/2025 12 - 20 [facility] Anion Gap SerPl Calc-sCnc 4.0 Below low normal 04/23/2025 5 - 14 [facility] Chloride SerPl-sCnc 107.0 mmol/L 04/23/2025 98 - 1 07 [facility] Glucose SerPl-mCnc 103.0 mg/dL 04/23/2025 70 - 199 [facility] eGFRcr SerPlBld CKD-EPI 2020 62.0 mL/min/1.73m2 04/23/2025 - [facility] Potassium SerPl-sCnc 3.8 mmol/L 04/23/2025 3.5 - 5.1 [facility] CO2 SerPl-sCnc 27.0 mmol/L 04/23/2025 24 - 32 [facility] Sodium SerPl-sCnc 138.0 mmol/L 04/23/2025 135 - 14 5 [facility] Creat SerPl-mCnc 1.38 mg/dL Above high normal 04/23/2025 0.7 - 1.3 [facility] Calcium SerPl-mCnc 7.7 mg/dL Below low normal 04/23/2025 8.4 - 10.2 [facility] BUN SerPl-mCnc 22.0 mg/dL Above high normal 04/23/2025 9 - 2 0 [facility] Troponin I SerPl HS-mCnc 4.0 ng/L 04/23/2025 0 - 20 [facility] Creat SerPl-mCnc 1.41 mg/dL Above high normal 04/23/2025 0.7 - 1.3 [facility] CO2 SerPl-sCnc 27.0 mmol/L 04/23/2025 24 - 32 [facility] Prot SerPl-mCnc 6.9 g/dL 04/23/2025 6.4 - 8.5 [facility]_ [facility] BUN/Creat SerPl 15.6 04/23/2025 12 - 20 [facility]_ [facility] Bilirub SerPl-mCnc 0.4 mg/dL 04/23/2025 0.3 - 1 [facility] Chloride SerPl-sCnc 104.0 mmol/L 04/23/2025 98 - 1 07 [facility] AST SerPl-cCnc 22.0 unit/L 04/23/2025 5 - 40 [facility] Anion Gap SerPl Calc-sCnc 7.0 04/23/2025 5 - 14 [facility] Albumin SerPl-mCnc 4.2 g/dL 04/23/2025 3.5 - 5 [facility] Potassium SerPl-sCnc 3.7 mmol/L 04/23/2025 3.5 - 5.1 [facility] Calcium SerPl-mCnc 8.5 mg/dL 04/23/2025 8.4 - 10.2 [facility] BUN SerPl-mCnc 22.0 mg/dL Above high normal 04/23/2025 9 - 2 0 [facility] ALT SerPl-cCnc 24.0 unit/L 04/23/2025 7 - 52 [facility] eGFRcr SerPlBld CKD-EPI 2020 61.0 mL/min/1.73m2 04/23/2025 - [facility] Sodium SerPl-sCnc 138.0 mmol/L 04/23/2025 135 - 14 5 [facility] ALP SerPl-cCnc 74.0 unit/L 04/23/2025 34 - 104 [facility] Glucose SerPl-mCnc 101.0 mg/dL 04/23/2025 70 - 199 [facility] Lipase SerPl-cCnc 34.0 unit/L 04/23/2025 11 - 82 [facility] MCH RBC Qn Auto 31.4 pcg 04/23/2025 25 - 33 [facility] Neutrophils NFr Bld Auto 47.4 % 04/23/2025 44 - 74 [facility] RDW RBC Auto 13.0 % 04/23/2025 12.1 - 17.7 [facility] Hgb Bld-mCnc 13.2 g/dL Below low normal 04/23/2025 13.5 - 18 [facility] Basophils # Bld Auto 0.03 K/mcL 04/23/2025 0 - 0.2 [facility] RBC Auto 92.9 FL 04/23/2025 78 - 100 [facility] Eosinophil NFr Bld Auto 2.6 % 04/23/2025 0 - 6 [facility] PMV Bld Auto 10.2 FL 04/23/2025 7.4 - 11.4 [facility] Lymphocytes NFr Bld Auto 39.2 % 04/23/2025 20 - 48 [facility] Lymphocytes # Bld Auto 1.93 K/mcL 04/23/2025 1 - 3.2 [facility] Neutrophils # Bld Auto 2.33 K/mcL 04/23/2025 1.8 - 7.8 [facility] Platelet # Bld Auto 232.0 K/mcL 04/23/2025 150 - 4 50 [facility] Monocytes NFr Bld Auto 10.0 % 04/23/2025 2 - 12 [facility] MCHC RBC Auto-EntMCnc 33.8 g/dL 04/23/2025 32 - 36 [facility] RBC # Bld Auto 4.2 M/mcL Below low normal 04/23/2025 4.7 - 6 [facility] WBC # Bld Auto 4.9 K/mcL 04/23/2025 4 - 10.5 [facility] Eosinophil # Bld Auto 0.13 K/mcL 04/23/2025 0 - 0.5 [facility] Hct VFr Bld Auto 39.0 % Below low normal 04/23/2025 40 - 54 [facility] Monocytes # Bld Auto 0.49 K/mcL 04/23/2025 0 - 0.8 [facility] Basophils NFr Bld Auto 0.6 % 04/23/2025 0 - 2 [facility] History of Medication Use Medication Directions Dispensed Refills Start Date End Date Stat iopamidoL (ISOVUE-370) 370 mg iodine /mL (76 %) injection 100 mL 100 mL, intravenous, Once in imaging, Starting on Sun04/23/25 at 0017, For 1 dose 04/23/2025 04/23/2025 completed ketorolac (TORADOL) injection 15 mg 15 mg, intravenous, Once, On Sun04/22/25 at 2233, For 1 dose 04/23/2025 04/23/2025 completed morphine injection 4 mg 4 mg, intravenous, Once, On Sun04/23/25 at 0007, For 1 dose 04/23/2025 04/23/2025 completed sodium chloride 0.9 % bolus 1,000 mL 1,000 mL, intravenous, at 2,000 mL/hr, Administer over 30 Minutes, Once, On Sun04/23/25 at 0005, For 1 dose 04/23/2025 04/23/2025 completed sodium chloride 0.9 % flush 10 mL 10 mL, intravenous, Once, On Sun04/23/25 at 0018, For 1 dose 04/23/2025 04/23/2025 completed sodium chloride 0.9 % intravenous solution 50 mL 50 mL, intravenous, Once in imaging, Starting on Sun04/23/25 at 0017, For 1 dose 04/23/2025 04/23/2025 completed No known medications No known medications active Problems Problem Status Onset Date Problem Type Date of Resoluti on Source Rib pain on left side active EncounterDiagnosisAct [facility] Elevated serum creatinine active EncounterDiagnosisAct [facility] LUQ abdominal pain active EncounterDiagnosisAct [facility] Encounters Encounter Type Encounter Reason Primary Diagnosis Location Date Emergency Abdominal Pain Pleurodynia [facility] 04/22/2025 Ambulatory Furuncle of head (any part, except face) [facility] 07/25/2021 Care Team Organization Name Specialty Phone Email Start Date End Da lacy [facility] CASSIJAHAIRA CONTEH Primary Care 04/23/20 [facility] 04/23/2025 [facility] 04/23/2025 [facility] 07/26/2021 06/09/2024 [facility] 07/25/2021 07/25/2021
--- OUTSIDE RECORDS SUMMARY | 2025-09-21 16:40 | XMS_ITS | Clinical Summary ---
Author Organization [facility] Address [address] [place] [address] Phone Care Team Providers Care Recreation Assistant Name Role Phone Roman Lu MD Primary Care Provider [phone]- [phone] Allergies No known active allergies Medications No known medications Active Problems No known active problems Medical History Medical History Date Comments Hypertension GERD (gastroesophageal reflux disease) Social History Tobacco Use Types Packs/Day Years Used Date Smoking Tobacco: Never Assessed Sex and Gender Information Value Date Recorded Sex Assigned at Not on file Legal Sex Male 9:56 PM EDT Gender Identity Not on file Sexual Orientation Not on file Obstetrics History Last Filed Vital Signs Vital Sign Reading Time Taken Comments Blood Pressure 100/65 04/23/2025 2:00 AM EDT Pulse 81 04/23/2025 2:00 AM EDT Temperature 36.7 C (98 F) 04/22/2025 9:58 PM EDT Respiratory Rate 17 04/23/2025 2:00 AM EDT Oxygen Saturation 99% 04/23/2025 2:00 AM EDT Inhaled Oxygen Concentration - - Weight 101 kg (222 lb) 04/22/2025 9:58 PM EDT Height 182.9 cm (6') 04/22/2025 9:58 PM EDT Body Mass Index 30.11 04/22/2025 9:58 PM EDT Plan of Treatment Health Maintenance Due Date Last Done Comments Colorectal Cancer Screening: Colonoscopy 1974 DTaP,Tdap,and Td Vaccines (1 - Tdap) 1993 Hepatitis B Vaccines (1 of 3 - 19+ 3-dose series) 1993 Pneumococcal Vaccine: 50+ Ye ars (1 of 1 - PCV) 2024 Zoster Vaccines (1 of 2) 2024 Depression Screening 10/22/2024 Cholesterol Screening (Lipid Panel) 04/23/2025 HIV Screening 04/23/2025 Hepatitis C Screening 04/23/2025 Social Influencers of Health Screening 04/23/2025 COVID-19 Vaccine (1 - 2024-2 6 season) 2025 Influenza Vaccine (#1) 2025 RSV Immunization Adult Patie nts (1 - 1-dose 75+ series) 2049 Hepatitis A Vaccines Aged Out 05/17/2023 No long er eligible based on patient's age to complete this topic HIB Vaccines Aged Out No longer eligi ble based on patient's age to complete this topic HPV Vaccines Aged Out No longer eligi ble based on patient's age to complete this topic IPV Vaccines Aged Out No longer eligi ble based on patient's age to complete this topic MMR Vaccines Aged Out No longer eligi ble based on patient's age to complete this topic Meningococcal ACWY Vaccine Aged Out N o longer eligible based on patient's age to complete this topic Meningococcal B Vaccine Aged Out No l onger eligible based on patient's age to complete this topic RSV Immunization Patients Un rinku 20 months Aged Out No longer eligible b ased on patient's age to complete this topic Varicella Vaccines Aged Out No longer eligible based on patient's age to complete this topic Insurance [facility] Care Teams Recreation Assistant Relationship Specialty Start Date End Date Roman Lu MD [address] [place] [address] PCP - General Internal Medicine 04/22/25
== END 2025-09-21 13:51 | disposition home or self-care (01) ==
PROVIDERS: PCP Physician Assistant Medical; Visit Provider Physician Assistant Medical
DX: Z00.00 Encounter for general adult medical examination without abnormal findings (principal); I10 Essential (primary) hypertension; E66.9 Obesity, unspecified; Z68.32 Body mass index [BMI] 32.0-32.9, adult; E78.5 Hyperlipidemia, unspecified; R91.1 Solitary pulmonary nodule; R01.1 Cardiac murmur, unspecified; Z23 Encounter for immunization

== ENCOUNTER → 2025-09-21 13:00 | Outpatient (BNVA) | payer BC, SELFPAY | PROVIDERS: PCP Physician Assistant Medical; Visit Provider Physician Assistant Medical | DX: Z00.00 Encounter for general adult medical examination without abnormal findings (principal); Z28.89 Immunization not carried out for other reason; I10 Essential (primary) hypertension; E78.5 Hyperlipidemia, unspecified; E66.9 Obesity, unspecified; R91.1 Solitary pulmonary nodule; R01.1 Cardiac murmur, unspecified; Z68.32 Body mass index [BMI] 32.0-32.9, adult | CPT/HCPCS: 96127 ==